=== PATIENT | male | born 1995 | race Caucasian/White ===

== ENCOUNTER 2020-03-27 18:47 | Emergency (ER) | payer BC ==
[~2020-03-27] VITALS: Ht 190.5 cm; Wt 149.7 kg
[2020-03-27 19:36] VITALS: BP 140/70
== END 2020-03-27 19:44 | disposition home or self-care (01) ==
LOC: M.ERS 18:47
DX: S93.491A Sprain of other ligament of right ankle, initial encounter (principal); W18.40XA Slipping, tripping and stumbling without falling, unspecified, initial encounter; Y93.89 Activity, other specified; Y92.89 Other specified places as the place of occurrence of the external cause; Y99.8 Other external cause status